=== PATIENT | female | born 1940 | race Caucasian/White ===

== ENCOUNTER 2018-07-18 10:16 | Emergency (ER) | payer MEDICARE ==
[~2018-07-18] VITALS: Ht 160 cm; Wt 100.0 kg
[2018-07-18 11:38] LABS: HEMATOCRIT 40.5 % (37.0-47.0); HEMOGLOBIN 13.7 g/dl (12.0-16.0); IMMATURE GRANULOCYTES 0.2 % (0.0-5.0); MEAN CELL VOLUME 92.7 fL CALC (80.0-100.0); MEAN CORPUSCULAR HGB 31.4 pG CALC (26.0-32.0); MEAN CORPUSCULAR HGB CONC 33.8 g/L CALC (32.0-36.0); NEUT# 7.47 thou/uL (2.00-7.15); RED BLOOD COUNT 4.37 mill/uL (4.20-5.60); RED CELL DISTRI WIDTH 15.4 % (11.5-15.5)
[2018-07-18 11:48] LABS: ANION GAP 17 (6-22 (CALC)); BUN 17 mg/dL (8-23); BUN/CREATININE RATIO 23 (12-20 (CALC)); CARBON DIOXIDE 27 mmol/l (22-30); CHLORIDE 101 mmol/l (95-108); CREATININE 0.7 mg/dL (0.5-1.0); GFR > 60 ML/MIN (>=60 (CALC)); GFR FOR AFR.AMER. > 60 ML/MIN (>=60 (CALC)); SODIUM 141 mmol/l (137-146)
[2018-07-18] MEDS ORDERED: MECLIZINE25 MG PO (14:01)
[2018-07-18] MEDS ORDERED: ONDANSETRON4 MG PO (14:01)
[2018-07-18 14:15] VITALS: BP 147/80
== END 2018-07-18 14:15 | disposition home or self-care (01) ==
LOC: ED 10:16
PROVIDERS: Family Medicine
DX: R42 Dizziness and giddiness (principal); E11.9 Type 2 diabetes mellitus without complications; I10 Essential (primary) hypertension
CPT/HCPCS: Q9967

== ENCOUNTER 2023-07-10 13:43 | Observation (INO) | payer MEDICARE ==
[~2023-07-10] VITALS: Ht 160 cm; Wt 86.4 kg
[2023-07-10] VITALS (8 sets, daily range): BP systolic 83–146; BP diastolic 44–71
[~2023-07-10 13:43] MED LIST: MECLIZINE25 MG PO; ONDANSETRON4 MG PO
[2023-07-10] MEDS ORDERED: FLUOXETINE HYDR20 MG (17:23)
[2023-07-10] MEDS ORDERED: LEUCOVOR CA5 MG PO (17:24)
[2023-07-10] MEDS ORDERED: METHOTREXATE2.5 MG PO (17:24)
[2023-07-10] MEDS ORDERED: ATENOLOL50 MG PO (17:25)
[2023-07-10] MEDS ORDERED: ATORVASTATIN CA20 MG PO (17:26)
[2023-07-10] MEDS ORDERED: CLONIDINE0.2 MG PO (17:27)
[2023-07-10] MEDS ORDERED: CVS FLUTICASON50 MC1 (17:28)
[2023-07-10] MEDS ORDERED: FOLIC ACID1 M1 (17:29)
[2023-07-10] MEDS ORDERED: HYDRALAZINE HYD25 MG (17:30)
[2023-07-10] MEDS ORDERED: AVAPRO300 MG PO (17:31)
[2023-07-10] MEDS ORDERED: AVALIDE 300-12.1 TAB (17:32)
[2023-07-10] MEDS ORDERED: LUTEIN6 M1 (17:34)
[2023-07-10] MEDS ORDERED: LEUKERAN2 MG PO (17:34)
[2023-07-10] MEDS ORDERED: PROTONIX40 M2 PO (17:35)
[2023-07-10] MEDS ORDERED: OXYBUTYNIN CHLOR5 M2 (17:35)
[2023-07-10] MEDS ORDERED: TIMOLOL MAL0.5 % (17:36)
[2023-07-10 17:44] LABS: BASO% 0.1 % (0-3); EOS% 0.3 % (0-8); IMMATURE GRANULOCYTES 0.3 % (0.0-5.0); LYMPH% 5.6 % (15-41); MEAN CELL VOLUME 95.4 fL CALC (80.0-100.0); MEAN CORPUSCULAR HGB 32.1 pG CALC (26.0-32.0); MEAN CORPUSCULAR HGB CONC 33.6 g/dL CAL (32.0-36.0); MONO% 3.9 % (2-13); NEUT# 9.22 thou/uL (2.00-7.15); NEUT% 89.8 % (42-76); RED BLOOD COUNT 3.49 mill/uL (4.20-5.60); RED CELL DISTRI WIDTH 14.6 % (11.5-15.5)
[2023-07-10 17:45] LABS: HEMATOCRIT 33.3 % (37.0-47.0); HEMOGLOBIN 11.2 g/dl (12.0-16.0)
[2023-07-10 17:54] LABS: ALBUMIN 3.8 g/dL (3.2-5.0); BILIRUBIN, TOTAL 0.9 mg/dL (0.02-1.3); CREATININE 1.4 mg/dL (0.5-1.0); POTASSIUM 4.2 mmol/l (3.5-5.1); TOTAL PROTEIN 6.5 g/dL (6.3-8.2)
[2023-07-11 03:16] VITALS: BP 115/46
[2023-07-11 06:43] LABS: BASO% 0.5 % (0-3); EOS% 1.7 % (0-8); HEMATOCRIT 33.1 % (37.0-47.0); HEMOGLOBIN 10.8 g/dl (12.0-16.0); IMMATURE GRANULOCYTES 0.2 % (0.0-5.0); LYMPH% 12.8 % (15-41); MEAN CELL VOLUME 98.5 fL CALC (80.0-100.0); MEAN CORPUSCULAR HGB 32.1 pG CALC (26.0-32.0); MEAN CORPUSCULAR HGB CONC 32.6 g/dL CAL (32.0-36.0); MONO% 5.6 % (2-13); NEUT# 5.1 thou/uL (2.00-7.15); NEUT% 79.2 % (42-76); RED BLOOD COUNT 3.36 mill/uL (4.20-5.60); RED CELL DISTRI WIDTH 14.7 % (11.5-15.5)
[2023-07-11 07:16] VITALS: BP 153/48
[2023-07-11 07:39] LABS: ALBUMIN 3.4 g/dL (3.2-5.0); BILIRUBIN, TOTAL 0.9 mg/dL (0.02-1.3); CHOLESTEROL HDL RATIO 2.9 (<4.4 (CALC)); CREATININE 1.2 mg/dL (0.5-1.0); MAGNESIUM 1.9 mg/dL (1.6-2.3); POTASSIUM 4.4 mmol/l (3.5-5.1); TOTAL PROTEIN 5.8 g/dL (6.3-8.2)
[2023-07-11 15:05] VITALS: BP 155/65
[2023-07-11 19:33] VITALS: BP 119/59
[2023-07-12 00:08] VITALS: BP 155/53
[2023-07-12 04:04] VITALS: BP 128/47
[2023-07-12 05:22] LABS: BASO% 0.7 % (0-3); HEMATOCRIT 32.2 % (37.0-47.0); HEMOGLOBIN 10.9 g/dl (12.0-16.0); IMMATURE GRANULOCYTES 0.2 % (0.0-5.0); LYMPH% 11.9 % (15-41); MEAN CELL VOLUME 96.1 fL CALC (80.0-100.0); MEAN CORPUSCULAR HGB 32.5 pG CALC (26.0-32.0); MEAN CORPUSCULAR HGB CONC 33.9 g/dL CAL (32.0-36.0); MONO% 7.9 % (2-13); NEUT# 4.54 thou/uL (2.00-7.15); NEUT% 76.3 % (42-76); RED BLOOD COUNT 3.35 mill/uL (4.20-5.60); RED CELL DISTRI WIDTH 14.5 % (11.5-15.5)
[2023-07-12 05:35] LABS: ALBUMIN 3.3 g/dL (3.2-5.0); BILIRUBIN, TOTAL 0.7 mg/dL (0.02-1.3); CREATININE 1.2 mg/dL (0.5-1.0); POTASSIUM 3.8 mmol/l (3.5-5.1); TOTAL PROTEIN 5.6 g/dL (6.3-8.2)
[2023-07-12 07:03] VITALS: BP 160/53
[2023-07-12 15:24] VITALS: BP 148/63
[2023-07-12 19:12] VITALS: BP 146/67
[2023-07-13 03:35] VITALS: BP 168/72
[2023-07-13 06:59] LABS: BASO% 0.5 % (0-3); EOS% 3.9 % (0-8); HEMATOCRIT 32.7 % (37.0-47.0); IMMATURE GRANULOCYTES 0.3 % (0.0-5.0); MEAN CELL VOLUME 95.3 fL CALC (80.0-100.0); MEAN CORPUSCULAR HGB 32.1 pG CALC (26.0-32.0); MEAN CORPUSCULAR HGB CONC 33.6 g/dL CAL (32.0-36.0); MONO% 9.3 % (2-13); NEUT# 4.82 thou/uL (2.00-7.15); RED BLOOD COUNT 3.43 mill/uL (4.20-5.60); RED CELL DISTRI WIDTH 14.5 % (11.5-15.5)
[2023-07-13 07:09] VITALS: BP 149/75
[2023-07-13 07:14] LABS: ALBUMIN 3.2 g/dL (3.2-5.0); BILIRUBIN, TOTAL 0.5 mg/dL (0.02-1.3); CREATININE 1.1 mg/dL (0.5-1.0); MAGNESIUM 1.9 mg/dL (1.6-2.3); POTASSIUM 3.8 mmol/l (3.5-5.1); TOTAL PROTEIN 5.7 g/dL (6.3-8.2)
[2023-07-13 20:07] VITALS: BP 178/83
[2023-07-14] VITALS (9 sets, daily range): BP systolic 139–193; BP diastolic 59–79
[2023-07-14 07:18] LABS: BASO% 0.3 % (0-3); EOS% 3.4 % (0-8); HEMOGLOBIN 11.2 g/dl (12.0-16.0); IMMATURE GRANULOCYTES 0.5 % (0.0-5.0); LYMPH% 8.4 % (15-41); MEAN CELL VOLUME 94.8 fL CALC (80.0-100.0); MEAN CORPUSCULAR HGB 32.2 pG CALC (26.0-32.0); MEAN CORPUSCULAR HGB CONC 33.9 g/dL CAL (32.0-36.0); MONO% 13.4 % (2-13); NEUT# 4.73 thou/uL (2.00-7.15); RED BLOOD COUNT 3.48 mill/uL (4.20-5.60); RED CELL DISTRI WIDTH 14.9 % (11.5-15.5)
[2023-07-14 07:35] LABS: CREATININE 1.1 mg/dL (0.5-1.0)
[2023-07-15] VITALS (8 sets, daily range): BP systolic 150–188; BP diastolic 67–94
[2023-07-15 09:47] LABS: BASO% 0.4 % (0-3); EOS% 2.8 % (0-8); HEMATOCRIT 32.5 % (37.0-47.0); HEMOGLOBIN 11.3 g/dl (12.0-16.0); IMMATURE GRANULOCYTES 0.4 % (0.0-5.0); MEAN CELL VOLUME 93.4 fL CALC (80.0-100.0); MEAN CORPUSCULAR HGB 32.5 pG CALC (26.0-32.0); MEAN CORPUSCULAR HGB CONC 34.8 g/dL CAL (32.0-36.0); MONO% 9.4 % (2-13); NEUT# 6.83 thou/uL (2.00-7.15); RED BLOOD COUNT 3.48 mill/uL (4.20-5.60); RED CELL DISTRI WIDTH 14.9 % (11.5-15.5)
[2023-07-15 10:02] LABS: ANION GAP 9 (6-22 (CALC)); BUN 19 mg/dL (8-23); BUN/CREATININE RATIO 18 (12-20 (CALC)); CARBON DIOXIDE 25 mmol/l (22-30); CHLORIDE 103 mmol/l (95-108); GFR FOR AFR.AMER. > 60 ML/MIN (>=60 (CALC)); GFR OTHER RACES 53 ML/MIN (>=60 (CALC)); POTASSIUM 3.7 mmol/l (3.5-5.1); SODIUM 133 mmol/l (137-146)
[2023-07-16] VITALS (7 sets, daily range): BP systolic 136–185; BP diastolic 48–87
[2023-07-16 05:23] LABS: BASO% 0.3 % (0-3); EOS% 3.1 % (0-8); HEMOGLOBIN 10.6 g/dl (12.0-16.0); IMMATURE GRANULOCYTES 0.1 % (0.0-5.0); LYMPH% 7.1 % (15-41); MEAN CELL VOLUME 92.6 fL CALC (80.0-100.0); MEAN CORPUSCULAR HGB 32.7 pG CALC (26.0-32.0); MEAN CORPUSCULAR HGB CONC 35.3 g/dL CAL (32.0-36.0); MONO% 13.1 % (2-13); NEUT# 5.36 thou/uL (2.00-7.15); NEUT% 76.3 % (42-76); RED BLOOD COUNT 3.24 mill/uL (4.20-5.60); RED CELL DISTRI WIDTH 14.9 % (11.5-15.5)
[2023-07-16 05:34] LABS: ANION GAP 8 (6-22 (CALC)); BUN 20 mg/dL (8-23); BUN/CREATININE RATIO 19 (12-20 (CALC)); CARBON DIOXIDE 25 mmol/l (22-30); CHLORIDE 103 mmol/l (95-108); GFR FOR AFR.AMER. > 60 ML/MIN (>=60 (CALC)); GFR OTHER RACES 53 ML/MIN (>=60 (CALC)); POTASSIUM 3.4 mmol/l (3.5-5.1); SODIUM 133 mmol/l (137-146)
[2023-07-17 03:57] VITALS: BP 168/92
[2023-07-17 06:03] LABS: BASO% 0.5 % (0-3); EOS% 4.4 % (0-8); HEMATOCRIT 31.4 % (37.0-47.0); HEMOGLOBIN 10.6 g/dl (12.0-16.0); IMMATURE GRANULOCYTES 0.2 % (0.0-5.0); LYMPH% 7.6 % (15-41); MEAN CELL VOLUME 94.6 fL CALC (80.0-100.0); MEAN CORPUSCULAR HGB 31.9 pG CALC (26.0-32.0); MEAN CORPUSCULAR HGB CONC 33.8 g/dL CAL (32.0-36.0); NEUT# 4.82 thou/uL (2.00-7.15); NEUT% 73.3 % (42-76); RED BLOOD COUNT 3.32 mill/uL (4.20-5.60)
[2023-07-17 06:20] LABS: ANION GAP 11 (6-22 (CALC)); BUN 20 mg/dL (8-23); BUN/CREATININE RATIO 19 (12-20 (CALC)); CARBON DIOXIDE 24 mmol/l (22-30); CHLORIDE 104 mmol/l (95-108); GFR FOR AFR.AMER. > 60 ML/MIN (>=60 (CALC)); GFR OTHER RACES 53 ML/MIN (>=60 (CALC)); POTASSIUM 3.9 mmol/l (3.5-5.1); SODIUM 135 mmol/l (137-146)
[2023-07-17 07:00] VITALS: BP 174/84
[2023-07-17 15:04] VITALS: BP 146/75
[2023-07-17 19:53] VITALS: BP 169/80
[2023-07-18 03:31] VITALS: BP 99/44
[2023-07-18 05:10] LABS: BASO% 0.5 % (0-3); EOS% 2.2 % (0-8); HEMATOCRIT 27.5 % (37.0-47.0); HEMOGLOBIN 9.5 g/dl (12.0-16.0); IMMATURE GRANULOCYTES 0.2 % (0.0-5.0); LYMPH% 7.5 % (15-41); MEAN CELL VOLUME 94.5 fL CALC (80.0-100.0); MEAN CORPUSCULAR HGB 32.6 pG CALC (26.0-32.0); MEAN CORPUSCULAR HGB CONC 34.5 g/dL CAL (32.0-36.0); MONO% 12.3 % (2-13); NEUT# 4.92 thou/uL (2.00-7.15); NEUT% 77.3 % (42-76); RED BLOOD COUNT 2.91 mill/uL (4.20-5.60); RED CELL DISTRI WIDTH 14.9 % (11.5-15.5)
[2023-07-18 05:15] LABS: ANION GAP 7 (6-22 (CALC)); BUN 24 mg/dL (8-23); BUN/CREATININE RATIO 24 (12-20 (CALC)); CARBON DIOXIDE 26 mmol/l (22-30); CHLORIDE 105 mmol/l (95-108); GFR FOR AFR.AMER. > 60 ML/MIN (>=60 (CALC)); GFR OTHER RACES 53 ML/MIN (>=60 (CALC)); POTASSIUM 3.6 mmol/l (3.5-5.1); SODIUM 134 mmol/l (137-146)
[2023-07-18 06:00] VITALS: BP 151/77
[2023-07-18 06:12] VITALS: BP 136/40
[2023-07-18] MEDS ORDERED: SINEMET 25/1001 TAB PO (12:54)
[2023-07-18] MEDS ORDERED: ALPRAZOLAM0.25 MG PO (12:54)
[2023-07-18] MEDS ORDERED: TRAMADOL HCL50 MG PO (12:54)
[2023-07-18] MEDS ORDERED: LORTAB5 PO (12:54)
[2023-07-18 16:21] VITALS: BP 149/61
[2023-07-18 16:23] VITALS: BP 149/61
[2023-07-18 20:13] VITALS: BP 152/76
[2023-07-19 03:58] VITALS: BP 164/85
[2023-07-19 05:39] LABS: BASO% 0.5 % (0-3); EOS% 2.7 % (0-8); HEMATOCRIT 29.8 % (37.0-47.0); IMMATURE GRANULOCYTES 0.2 % (0.0-5.0); LYMPH% 9.8 % (15-41); MEAN CELL VOLUME 94.6 fL CALC (80.0-100.0); MEAN CORPUSCULAR HGB 31.7 pG CALC (26.0-32.0); MEAN CORPUSCULAR HGB CONC 33.6 g/dL CAL (32.0-36.0); MONO% 9.2 % (2-13); NEUT# 4.91 thou/uL (2.00-7.15); NEUT% 77.6 % (42-76); RED BLOOD COUNT 3.15 mill/uL (4.20-5.60); RED CELL DISTRI WIDTH 14.6 % (11.5-15.5)
[2023-07-19 05:53] LABS: ANION GAP 9 (6-22 (CALC)); BUN 21 mg/dL (8-23); BUN/CREATININE RATIO 21 (12-20 (CALC)); CARBON DIOXIDE 24 mmol/l (22-30); CHLORIDE 107 mmol/l (95-108); GFR FOR AFR.AMER. > 60 ML/MIN (>=60 (CALC)); GFR OTHER RACES 53 ML/MIN (>=60 (CALC)); POTASSIUM 3.6 mmol/l (3.5-5.1); SODIUM 137 mmol/l (137-146)
[2023-07-19 07:17] VITALS: BP 179/79
[2023-07-19 09:18] VITALS: BP 179/79
== END 2023-07-19 09:30 ==
LOC: ED 13:43 → ED-I 16:40 → ED 17:14 → MS2 17:15
PROVIDERS: Emergency Medicine; Nurse Practitioner Family; Student in an Organized Health Care Education/Training Program; ADMIT Student in an Organized Health Care Education/Training Program; ATTEND Student in an Organized Health Care Education/Training Program
DX: G20.B1 Parkinson's disease with dyskinesia, without mention of fluctuations (principal); N17.9 Acute kidney failure, unspecified; S80.01XA Contusion of right knee, initial encounter; S83.91XA Sprain of unspecified site of right knee, initial encounter; S90.111A Contusion of right great toe without damage to nail, initial encounter; M25.511 Pain in right shoulder; I10 Essential (primary) hypertension; E11.9 Type 2 diabetes mellitus without complications; G93.89 Other specified disorders of brain; R01.1 Cardiac murmur, unspecified; E66.9 Obesity, unspecified; F41.9 Anxiety disorder, unspecified; Y92.002 Bathroom of unspecified non-institutional (private) residence as the place of occurrence of the external cause; W18.30XA Fall on same level, unspecified, initial encounter
CPT/HCPCS: S0166